=== PATIENT | female | born 2000 | race Caucasian/White ===

== ENCOUNTER 2024-04-30 22:50 | Outpatient (CLI) | payer BC, MEDICAID, SELFPAY ==
[2024-04-30 23:00] VITALS: BMI 29.4
[2024-04-30 23:03] VITALS: BP 119/78; PULSE 98
[2024-04-30 23:05] VITALS: TEMP 36.6
[2024-04-30 23:18] VITALS: BP 110/72; PULSE 96
[2024-04-30 23:33] VITALS: BP 113/72; PULSE 96
[2024-05-01 01:56] VITALS: BP 112/71; PULSE 91
[2024-05-01 02:10] VITALS: BP 112/71; PULSE 91; O2SAT 99
== END 2024-05-01 02:15 | disposition home or self-care (01) ==
LOC: OPOB 22:54 → OBGYN 22:56
PROVIDERS: PCP Family Medicine; Visit Provider Family Medicine
DX: O26.899 Other specified pregnancy related conditions, unspecified trimester (principal); Z3A.00 Weeks of gestation of pregnancy not specified; R10.9 Unspecified abdominal pain
CPT/HCPCS: 59025; 99211

== ENCOUNTER 2024-05-05 04:04 | Outpatient (CLI) | payer BC, MEDICAID, SELFPAY ==
[2024-05-05 04:04] VITALS: BMI 31.1
[2024-05-05 04:48] VITALS: BP 111/75; PULSE 103
[2024-05-05 04:55] LABS: Actim Prom Negative
[2024-05-05 05:02] VITALS: BP 113/73; PULSE 110
[2024-05-05 06:52] VITALS: BP 116/75; PULSE 83
[2024-05-05 07:05] VITALS: BP 116/75; PULSE 83; O2SAT 99
== END 2024-05-05 07:05 | disposition home or self-care (01) ==
LOC: OPOB 04:08 → OBGYN 04:08
PROVIDERS: PCP Family Medicine; Visit Provider Family Medicine
DX: O46.90 Antepartum hemorrhage, unspecified, unspecified trimester (principal); Z3A.00 Weeks of gestation of pregnancy not specified
CPT/HCPCS: 59025; 83986; 84112; 99211